=== PATIENT | male | born 1965 | race Caucasian/White ===

== ENCOUNTER 2020-10-08 05:44 | Day surgery (SDC) | payer SELFPAY ==
[~2020-10-08] VITALS: Ht 185.4 cm; Wt 98.0 kg
[~2020-10-08 05:44] MED LIST: FLOMAX0.4 MG PO
[2020-10-08 06:22] LABS: BASOPHILS 1.5 % (0-2); EOSINOPHILS 7.4 % (0-7); HEMATOCRIT 40.5 % (42.0-54.0); HEMOGLOBIN 13.7 g/dL (13.5-17.5); LYMPHOCYTES 32.8 % (15-50); MCHC 33.9 g/dL (31.0-37.0); MCV 85.6 fL (80.0-100.0); MEAN PLATELET VOLUME 6.8 fL (7.4-10.4); MONOCYTES 14.4 % (2-11); NEUTROPHILS 43.9 % (40-80); PLATELET COUNT 253 10x3/uL (130-400); RBC 4.73 10x6/uL (4.20-6.10); RDW 13.9 % (11.5-14.5); WBC 4.5 10x3/uL (4.8-10.8)
[2020-10-08 06:42] LABS: CALC OSMOLALITY 283 mosm/kg (275-300); CALCIUM 8.9 mg/dL (8.5-10.1); CARBON DIOXIDE 30.1 mmol/L (21.0-32.0); CHLORIDE - SERUM 106 mmol/L (98-107); GLUCOSE 97 mg/dL (74-106); POTASSIUM - SERUM 4.4 mmol/L (3.5-5.1); SODIUM 141 mmol/L (136-145); UREA NITROGEN 22 mg/dL (7-18); eGFR NON AFRICAN AMERICAN 82 mL/min (90-120)
[2020-10-08 07:16] VITALS: BP 153/89; Ht 185.4 cm; Wt 98.0 kg
[2020-10-08] MEDS ORDERED: HYDROCODON-ACE1 EA10 PO (09:17)
--- NOTE | 2020-10-08 11:33 | NUR ---
PT STATES PAIN IS TOLERABLE AND WANTS TO GO HOME. IV D/C'D WITH CANNULA INTACT, PRESSURE HELD AND DRSG PLACED. DISCHARGE INSTRUCTIONS GIVEN AND PT VERBALIZED AN UNDERSTANDING
--- NOTE | 2020-10-12 13:46 | OP ---
PATIENT NAME: CHIP STERN MEDICAL RECORD: [id number] :65 LOCATION:D.OPS ADMISSION DATE: SURGEON: EDGARDO WIGGINS MD DATE OF OPERATION: 10/08/2020 PREOPERATIVE DIAGNOSES: Recurrent right inguinal hernia, benign prostatic hyperplasia. POSTOPERATIVE DIAGNOSIS: Recurrent right inguinal hernia. PROCEDURE: Recurrent right inguinal hernia repair with medium PHS mesh. SURGEON: Edgardo Wiggins MD DESCRIPTION OF PROCEDURE: The patient's right groin was prepped and draped in sterile fashion. An oblique incision was made above the inguinal ligament. Electrocautery was used to dissect through the subcutaneous tissues down to the external oblique fascia. This fascia was opened up to the external ring. Using electrocautery, I was able to elevate the external oblique fascia on each side and get through all of the old scar tissue from his previous hernia repair. I never saw any evidence of a hernia mesh. What appeared to be an ilioinguinal nerve was found and high ligated. We then elevated the spermatic cord and a Marlon was placed around it. The patient had a decent size hernia sac present and this was dissected free from the spermatic cord. We then pushed this back into the abdominal cavity. An opening was made in the inguinal floor and I opened up the preperitoneal space of Retzius. A medium PHS mesh was inserted and sutured down on all 4 sides using multiple interrupted 0 Vicryls. The wound was then irrigated out with normal saline. The external oblique fascia was closed with running 2-0 Vicryl. Gilda's was closed with interrupted 3-0 Vicryl and the skin was closed with running subcutaneous 5-0 Monocryl. A 10 mL of 0.25% Marcaine with epinephrine was infused into the surrounding tissues and the wound was dressed appropriately. COMPLICATIONS: None. CONDITION: Stable. ANESTHESIA: General endotracheal and local. BLOOD LOSS: Minimal. TRANSINT:[id number] Voice Confirmation ID: [id number] DOCUMENT ID: [id number] EDGARDO WIGGINS MD at 1346 CC: [id number] DICTATION DATE: 10/08/20917 NIGHT ORDER SELECTOR: 10/08/20 1009 [facility] [place] 10/08/20 [place] [address]
== END 2020-10-08 11:18 | disposition home or self-care (01) ==
LOC: D.OPS 05:44
PROVIDERS: ATTEND Surgery
DX: K40.91 Unilateral inguinal hernia, without obstruction or gangrene, recurrent (principal); N40.0 Benign prostatic hyperplasia without lower urinary tract symptoms